=== PATIENT | female | born 1980 | race American Indian/Alaskan Native ===

== ENCOUNTER 2020-03-06 22:54 | Emergency (ER) | payer OTHER ==
[2020-03-06 23:45] VITALS: BP 115/54
[2020-03-07 00:39] LABS: HCG Qualitative,Urine Positive (Negative)
[2020-03-07] MEDS ORDERED: ACETAMINOPHEN 500 MG TAB PO ONE (01:02)
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
== END 2020-03-07 04:15 | disposition home or self-care (01) ==
LOC: ED 22:54
DX: O9A.211 Injury, poisoning and certain other consequences of external causes complicating pregnancy, first trimester (principal); O26.891 Other specified pregnancy related conditions, first trimester; S39.012A Strain of muscle, fascia and tendon of lower back, initial encounter; F12.90 Cannabis use, unspecified, uncomplicated; Z79.899 Other long term (current) drug therapy; Z98.890 Other specified postprocedural states; Z3A.09 9 weeks gestation of pregnancy; V49.59XA Passenger injured in collision with other motor vehicles in traffic accident, initial encounter; Y93.89 Activity, other specified; Y92.488 Other paved roadways as the place of occurrence of the external cause; Y99.8 Other external cause status
CPT/HCPCS: 36415; 76801; 76817; 81025; 84702; 99284